=== PATIENT | male | born 1985 ===

== ENCOUNTER 2024-07-08 15:40 | Emergency (ER) | payer OTHER ==
[2024-07-08 16:01] LABS: EOSINOPHILS PERCENT AUTO 2.5 % (1.0-3.0); HEMATOCRIT 42.7 % (40.0-54.0); HEMOGLOBIN 14.9 g/dL (14.0-18.0); LYMPHOCYTES PERCENT AUTO 21.6 % (20.5-50.1); MEAN CORPUSCULAR HEMOGLOBIN 31.7 pg (27.0-34.0); MEAN CORPUSCULAR HGB CONC 34.9 g/dL (33.0-35.0); MEAN CORPUSCULAR VOLUME 90.9 fL (80-100); MONOCYTES PERCENT AUTO 3.5 % (2-8); NEUTROPHILS PERCENT AUTO 72.4 % (42.2-75.2); PLATELET COUNT,PLT 248 10^3/uL (150-450); WHITE BLOOD CELL COUNT,WBC 6.3 10^3/uL (5.0-10.0)
[2024-07-08 16:17] LABS: PROTHROMBIN TIME 10.6 SEC (9.0-12.0)
[2024-07-08 16:21] LABS: A/G RATIO 1.3; ALANINE AMINOTRANSFERASE,ALT 27 U/L (16-63); ALBUMIN 3.8 g/dL (3.4-5.0); ALKALINE PHOSPHATASE 87 U/L (46-116); ASPARTATE AMNIOTRANSFERASE,AST 18 U/L (15-37); BLOOD UREA NITROGEN,BUN 25 mg/dL (7-18); BUN/CREATININE RATIO 21.4 (No establ ref range); CALCIUM 8.9 mg/dL (8.5-10.1); CARBON DIOXIDE,CO2 29 mmol/L (21-32); CHLORIDE,CL 106 mmol/L (98-107); CREATININE 1.17 mg/dL (0.70-1.30); ETHANOL BLOOD MEDICAL 3 mg/dL (0); GLUCOSE RANDOM 97 mg/dL (70-99); LIPASE 41 U/L (16-77); PROTEIN TOTAL,TP 6.8 g/dL (6.4-8.2); SODIUM,NA 142 mmol/L (136-145)
[2024-07-08 16:22] LABS: ESTIMATED GFR 82 mL/min (>=60)
[2024-07-08] MEDS: Lactated Ringers 1,000 ML IV ONE (16:37)
[2024-07-08] MEDS: Acetaminophen 500 MG Tab PO ONE (17:11)
== END 2024-07-08 17:50 | disposition home or self-care (01) ==
LOC: DL.ED 15:40
DX: S06.0X1A Concussion with loss of consciousness of 30 minutes or less, initial encounter (principal); X58.XXXA Exposure to other specified factors, initial encounter
CPT/HCPCS: 36415; 70450; 72125; 80053; 80307; 83690; 84484; 85025; 85610; 93010; 96360; 99284; 99285; A9270; J7120